=== PATIENT | female | born 1960 | race Caucasian/White ===

== ENCOUNTER 2017-12-17 15:11 | Emergency (ER) | payer BC, OTHER ==
[2017-12-17 15:16] VITALS: BP 153/99; TEMP 98.8; BMI 29.2
--- NOTE | 2017-12-17 16:47 | ED.PDOC ---
General ED Provider: Dr. ANNETTE MADRID Chief Complaint: Urinary Problem Stated Complaint: Difficulty with voiding. Have not been able to initiate urinatation Time Seen by Physician: 16:25 Mode of Arrival: Walk-In Information Source: Patient Exam Limitations: No limitations Primary Care Provider: ANNETTE ALEJANDRA Nursing and Triage Documentation Reviewed and Agree: Yes Does patient meet sepsis criteria?: No System Inflammatory Response Syndrome: Not Applicable Sepsis Protocol: For patient's 13 years and over: Temp is 96.8 and below OR 101 and greater Pulse >90 BPM Resp >20/minute Acutely Altered Mental Status Are patient's symptoms suggestive of a new infection, such as: -Pneumonia -Skin, Soft Tissue -Endocarditis -UTI -Bone, Joint Infection -Implantable Device -Acute Abdominal Infection -Wound Infection -Meningitis -Blood Stream Catheter Infection -Unknown Review of Systems - Review Of Systems Constitutional: Reports: No symptoms Eyes: Reports: No symptoms Ears, Nose, Mouth, Throat: Reports: No symptoms Respiratory: Reports: No symptoms Cardiac: Reports: No symptoms GI: Reports: No symptoms : Reports: No symptoms Musculoskeletal: Reports: No symptoms Skin: Reports: No symptoms Neurological: Reports: No symptoms Endocrine: Reports: No symptoms Hematologic/Lymphatic: Reports: No symptoms All Other Systems: Reviewed and Negative Past Medical History - Past Medical History Last Menstrual Period: 3 weeks ago - Social History Smoking Status: Never smoker Hx Substance Use: No Alcohol Screening: None Physical Exam - Physical Exam Appearance: Well-appearing, No pain distress, Well-nourished Eyes: JED, EOMI, Conjunctiva clear ENT: Ears normal, Nose normal, Oropharynx normal Respiratory: Airway patent, Breath sounds clear, Breath sounds equal, Respirations nonlabored Cardiovascular: RRR, Pulses normal, No rub, No murmur GI/: Soft, Nontender, No masses, Bowel sounds normal, No Organomegaly Musculoskeletal: Normal strength, ROM intact, No edema, No calf tenderness Skin: Warm, Dry, Normal color Neurological: Sensation intact, Motor intact, Reflexes intact, Cranial nerves intact, Alert, Oriented Psychiatric: Affect appropriate, Mood appropriate Course - Course Orders, Labs, Meds: Lab Review 12/17/17 16:59 Urine Color [place] Urine Clarity Slightly Urine pH 5.5 Ur Specific Mary D 1.010 Urine Protein Negative Urine Glucose (UA) Trace Urine Ketones Negative Urine Blood 1+ Urine Nitrite Positive Urine Bilirubin Negative Urine Urobilinogen 0.2 Ur Leukocyte Esterase Negative Urine Microscopic RBC 5-10 Urine Microscopic WBC 0-2 Ur Squamous Epith Cells 0-2 Orders Category Date Time Status UA [URINALYSIS C & S IF INDICATED] Stat LAB 12/17/17 16:59 Completed Vital Signs: Temp Pulse Resp BP Pulse Ox 12/17/17 15:12 98.8 F 111 H 20 153/99 H 97 Departure - Departure Time of Disposition: 18:15 Disposition: HOME SELF-CARE Discharge Problem: Urinary retention, UTI (urinary tract infection) Instructions: Acute Urinary Retention in Women (ED), Urinary Tract Infection in Women (ED) Condition: Good Pt referred to PMD for follow-up: Yes IPMP verified?: No Additional Instructions: Remain on current antibiotic Austin catheter until follow up by urologist Follow up with Dr Alejandra Allergies/Adverse Reactions: Allergies Penicillins Adverse Reaction (Verified 12/17/17 15:18) vancomycin Adverse Reaction (Verified 12/17/17 15:18) Home Medications: Ambulatory Orders Norethindrone-E.estradiol-Iron [Lo Loestrin Fe 1-10 Tablet] 1 each PO DAILY Phenazopyridine HCl [Pyridium] 100 mg PO PRN PRN 12/17/17 Sulfamethoxazole/Trimethoprim [Bactrim Ds 800/160 mg] 1 tab PO Q12HR 12/17/17 Disposition Discussed With: Patient, Family Complaint Exam - UTI Female Complaint/Exam Patient Complains of: Reports: Painful urination (unable to void) Symptoms Are: Still present Timing: Constant Initial Severity: Severe Current Severity: Severe Location of Pain: Reports: Suprapubic Associated Signs and Symptoms: Denies: Fever, Chills, Flank pain, Dyspareunia, Vaginal discharge
== END 2017-12-17 18:26 | disposition home or self-care (01) ==
LOC: ED 15:11
DX: R33.9 Retention of urine, unspecified (principal); N39.0 Urinary tract infection, site not specified; R30.9 Painful micturition, unspecified
CPT/HCPCS: 81001; 99283

== ENCOUNTER 2017-12-29 08:57 | Outpatient (CLI) ==
[2017-12-29 14:38] VITALS: BP 155/97; TEMP 98.4
== END 2017-12-29 15:50 | disposition home or self-care (01) ==
LOC: LAB 08:57 → OPMED 15:50
PROVIDERS: ATTEND Family Medicine
DX: R33.9 Retention of urine, unspecified (principal); R30.0 Dysuria
CPT/HCPCS: 51798; 81001; 87086